=== PATIENT | male | born 1970 | race Caucasian/White ===

== ENCOUNTER 2023-01-25 10:39 | Inpatient (IN) | payer OTHER, SELFPAY ==
[2023-01-25] VITALS (79 sets, daily range): BP systolic 78–118; BP diastolic 48–80; PULSE 84–104; RESP 12–26; TEMP 37.2–37.3; O2SAT 91–100
--- NOTE | ~2023-01-25 | CT_ITS ---
EXAMINATION: CT abdomen pelvis w con DATE: 01/25/2023 12:29 INDICATION: Abdominal pain and distention. TECHNIQUE: Computed tomography (CT) of the abdomen and pelvis was performed with 100 mL Omnipaque 350 intravenous contrast. Automated exposure control and iterative reconstruction technique were employe d. The dose-length product was 609.04 mGy-cm. COMPARISON: None. FINDINGS: The visualized portions of the lung bases demonstrate mild atelectasis. There are small ple ural effusions. The heart size is normal. No pericardial effusion. There is diffuse hepatic steatosis . The gallbladder, spleen, pancreas, adrenal glands, and kidneys are normal. There is a paraumbilical portacaval shunt. There are no dilated loops of bowel. The appendix is normal. There is wall thicken ing of small and large bowel. There is an umbilical hernia containing fat. There is a small volume of ascites. There is a left inguinal hernia containing fat. There are no pathologically enlarged lymph nodes. There are old bilateral rib fractures. There is severe lower lumbar spondylosis. IMPRESSION: 1. Diffuse hepatic steatosis. 2. Portal venous hypertension. 3. Wall thickening of small and large bowel, likely interstitial edema. 4. Small volume of ascites. 5. Small pleural effusions. 6. Umbilical hernia containing fat. Left inguinal hernia containing fat. Reviewed, dictated and finalized at location A.
--- NOTE | ~2023-01-25 | CT_ITS ---
EXAMINATION: CT brain wo con DATE: 01/25/2023 12:29 INDICATION: Disorientation. TECHNIQUE: Computed tomography (CT) of the head was performed without intravenous contrast. Sagittal and coronal reconstructions were performed. The mA was adjusted according to patient size. Iterative reconstruction technique was employed. The dose-length product was 605.33 mGy-cm. COMPARISON: None FINDINGS: No acute intracranial hemorrhage, acute infarction or abnormal extra axial fluid collection. There is mild scattered white matter hypoattenuation consistent with chronic small vessel ischemic disease. S ymmetric prominence of the sulci and subarachnoid spaces overlying the convexities consistent with mi ld to moderate diffuse cerebral volume loss which is disproportionate for age. Ventricles are normal and symmetric. No mass/mass effect. Moderate mucosal thickening the bilateral maxillary sinuses. The orbits and mastoid air cells are normal. IMPRESSION: 1. No acute intracranial process. 2. Mild to moderate diffuse volume loss which is disproportionate for age with mild scattered nonspec ific white matter hypoattenuation most likely related to chronic small vessel ischemic disease. Reviewed, dictated and finalized at location L. IMPRESSION: 1. No acute intracranial process. 2. Mild to moderate diffuse volume loss which is disproportionate for age with mild scattered nonspecific white matter hypoattenuation most likely related to chronic small vessel ischemic disease.
[2023-01-25 11:49] LABS: Basophils Absolute Auto 0.1 K/mm3 (0.0-0.1); Basophils Percent Auto 0.5 % (0.2-1.2); Eosinophils Absolute Auto 0.2 K/mm3 (0-0.3); Eosinophils Percent Auto 1.2 % (0-4.4); Immature Granulocyte Absolute 0.12 K/mm3 (0.00-0.031); Immature Granulocyte Percent A 0.9 % (0-0.5); Lymphocytes Absolute Auto 1.23 K/mm3 (0.9-3.2); Lymphocytes Percent Auto 9.6 % (18.3-44.2); Mean Corpuscular HGB Conc 31.1 g/dl (32-36); Mean Corpuscular Hemoglobin 37.9 pg (26-34); Mean Corpuscular Volume 121.7 fl (80-100); Mean Platelet Volume 10.1 fl (7.4-10.4); Monocytes Absolute Auto 1.4 K/mm3 (0.1-0.6); Monocytes Percent Auto 10.5 % (2.6-8.5); Neutrophils Absolute Auto 9.9 K/mm3 (1.3-6.7); Neutrophils Percent Auto 77.3 % (45.5-73.1); Platelet Count Result 169 k/mm3 (150-375); Red Blood Count 1.61 M/mm3 (4.6-6.20); Red Cell Distribution Width 17.8 % (11.5-14.5); White Blood Count 12.9 K/mm3 (4.5-10.0)
[2023-01-25 11:58] LABS: Alanine Aminotransferase 44 U/L (6-50); Alkaline Phosphatase 170 U/L (38-126); Anion Gap 9 mmol/L (8-16); Aspartate Amino Transferase 98 U/L (17-59); Bilirubin,Total 10.9 mg/dL (0.2-1.3); Blood Urea Nitrogen 11 mg/dL (9-20); Calcium 7.9 mg/dL (8.4-10.2); Carbon Dioxide 29 mmol/L (22-30); Chloride 98 mmol/L (98-107); Estimated CRCL calculation 109 ml/min; Estimated Glomerular Filt Rate > 60; Glucose 105 mg/dL (65-110); Lipase 182 U/L (23-300); Potassium 2.7 mmol/L (3.4-5.0); Sodium 136 mmol/L (137-145)
[2023-01-25 12:06] LABS: Hemoglobin 6.1 g/dL (14.0-18.0)
[2023-01-25 12:07] LABS: Hematocrit 19.6 % (42.0-52.0)
[2023-01-25 12:08] LABS: Platelet Estimate Adequate (Adequate)
[2023-01-25 12:09] LABS: Anisocytosis 2+ (NORMAL); Hypochromasia 3+ (NORMAL); Macrocytosis 3+ (NORMAL); Tear Drop Cells 1+ (NORMAL)
[2023-01-25 12:10] LABS: Schistocytes None Seen (NORMAL); Target Cells 1+ (NORMAL)
[2023-01-25 12:20] LABS: Magnesium 1.7 mg/dL (1.6-2.3)
[2023-01-25 12:22] LABS: INR 1.4; Prothrombin Time 17.8 Seconds (11.1-14.7)
[2023-01-25 12:23] LABS: Partial Thromboplastin Time 40.8 SECONDS (22.3-36.8)
[2023-01-25] MEDS: POTASSIUM CHLORIDE 20 MEQ PACKET (FOR LIQUID) 40 MEQ PO (12:33)
[2023-01-25] MEDS: POTASSIUM CHLORIDE INJ 40 MEQ in SODIUM CHLORIDE 0.9% IV 500 ML 130 MEQ IVPB (12:37)
--- NOTE | 2023-01-25 13:37 | ED.WEAKNESS ---
HPI - Weakness General Chief complaint: Weakness <Christianne Rodriguez MD - Last Filed: 01/26/23 08:15> Stated complaint: jaundice, weak, abd pain <Christianne Rodriguez MD - Last Filed: 01/26/23 08:15> Time Seen by Provider: 01/25/23 11:40 <Christianne Rodriguez MD - Last Filed: 01/26/23 08:15> History of Present Illness HPI Narrative: History obtained from patient and mother at bedside, he had been drinking very heavily after the of his . Over the past month, he has noticed his skin has become more yellow and he has become very weak, per mother he actually fell a few times. Has tried to quit drinking with last drink about 2 weeks ago. <Christianne Rodriguez MD - Last Filed: 01/26/23 08:15> Related Data Home medications: Home Medications Medication Instructions Recorded Confirmed No Home Medications 01/26/23 01/26/23 <Christianne Rodriguez MD - Last Filed: 01/26/23 08:15> Allergies/Adverse reactions: Allergies Allergy/AdvReac Type Severity Reaction Status Date / Time No Known Allergies Allergy Verified 01/25/23 12:16 <Christianne Rodriguez MD - Last Filed: 01/26/23 08:15> Review of Systems Review of Systems: CONST: Overall weakness HEENT: No sore throat C/V: No chest pain RESP: No cough GI: Abdominal distention : No dysuria. M/S: No joint pain. SKIN: No rash. NEURO: Generalized weakness PSYCH: [No depression] <Christianne Rodriguez MD - Last Filed: 01/26/23 08:15> [facility] Past Medical History Medical History: Medical History (Updated 01/26/23 @ 14:30 by Jimi Cali MD) Acute anemia Portal hypertension <Christianne Rodriguez MD - Last Filed: 01/26/23 08:15> Surgical History Surgical History: Surgical History (Updated 01/26/23 @ 13:21 by Ann Rainey NP) History of tonsillectomy and adenoidectomy S/P ORIF (open reduction internal fixation) fracture Right ankle and right forearm <Christianne Rodriguez MD - Last Filed: 01/26/23 08:15> Family History Family History: Family History (Updated 01/26/23 @ 13:22 by Ann Rainey NP) Father Malignant neoplasm of prostate Mother Heart disease <Christianne Rodriguez MD - Last Filed: 01/26/23 08:15> Social History Social History: Social History (Updated 01/26/23 @ 13:23 by Ann Rainey NP) Social History: The patient continues to smoke a half a pack a cigarettes a day. The patient stated that he was drinking a pt of Tequila a day. His last drink was approximately 2 weeks ago. The patient has no children and is a were. 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 Code status full code Smoking packs per day: 0.5 Smoking cigarettes per day: 10.0 Smoking status: Current every day smoker Tobacco type: cigarettes Alcohol intake: former Substance use: current Substance use type: marijuana Lack of Transportation: No Lack of Food: Never True Current Housing: Decline to Answer Concerned About Future Housing: Decline to Answer Difficulty Paying Gas/Electric Bills: Decline to Answer Difficulty Paying for Meds: Decline to Answer Currently Unemployed: Decline to Answer Education: Decline to Answer Difficulty w/ Childcare or Family Care: Decline to Answer Spiritual care concerns: No <Christianne Rodriguez MD - Last Filed: 01/26/23 08:15> Exam Narrative: EXAMINATION OF ORGAN SYSTEMS/BODY AREAS: Constitutional: Vital signs per nursing GENERAL:[No acute distress, non-toxic appearing.] HEAD: Normal with no signs of head trauma. EYES: EOMI, conjunctiva normal ENT: Hearing grossly intact LUNGS: Nonlabored breathing. HEART: [Regular rate and rhythm] ABD: [Soft], slightly distended EXT: Normal range of motion SKIN: Jaundice NEURO: [Alert and oriented x 3. No gross focal sensory or strength deficits.] PSYCH: Normal affect <Christianne Rodriguez MD - Last Filed: 01/26/23 08:15> Course Course Emergency Course: Zych 1900: Patient was signed out to me pending
[2023-01-25 14:13] LABS: Hepatitis B Surface Antigen Negative (Negative)
[2023-01-25 14:19] LABS: HAV RESULT Negative (Negative); Hepatitis B Core IgM Result Negative (Negative)
[2023-01-25 16:06] LABS: Hepatitis C Virus Antibody Negative (Negative)
[2023-01-25] MEDS: TUBING, BLOOD PLUM PUMP TUBING 1 EACH XX (16:07)
[2023-01-25] MEDS: SODIUM CHLORIDE 0.9% IV 250 ML 30 ML IV CONT (16:07)
[2023-01-25] MEDS: THIAMINE HCL 200 MG/2 ML VIAL 100 MG IV PUSH (16:57)
[2023-01-25 17:25] LABS: Ethanol < 10 mg/dL (<10)
--- NOTE | 2023-01-25 20:05 | PC.NURSE ---
Patient able to use urinal at bedside.
--- NOTE | 2023-01-25 21:38 | PC.NURSE ---
Spoke with Ruby with the [facility] transfer center for an update. Patient still waiting for bed placement
[2023-01-26] VITALS (20 sets, daily range): BP systolic 93–113; BP diastolic 59–77; PULSE 82–97; RESP 13–24; TEMP 36.9–37.4; O2SAT 90–100; BMI 22.8
[2023-01-26 06:29] LABS: Basophils Absolute Auto 0.1 K/mm3 (0.0-0.1); Basophils Percent Auto 0.7 % (0.2-1.2); Eosinophils Absolute Auto 0.2 K/mm3 (0-0.3); Immature Granulocyte Percent A 0.9 % (0-0.5); Lymphocytes Absolute Auto 1.21 K/mm3 (0.9-3.2); Lymphocytes Percent Auto 10.4 % (18.3-44.2); Mean Corpuscular HGB Conc 31.5 g/dl (32-36); Mean Corpuscular Hemoglobin 36.5 pg (26-34); Mean Corpuscular Volume 115.9 fl (80-100); Monocytes Absolute Auto 1.2 K/mm3 (0.1-0.6); Monocytes Percent Auto 10.2 % (2.6-8.5); Neutrophils Absolute Auto 8.8 K/mm3 (1.3-6.7); Neutrophils Percent Auto 75.8 % (45.5-73.1); Platelet Count Result 143 k/mm3 (150-375); Red Cell Distribution Width 22.9 % (11.5-14.5); White Blood Count 11.6 K/mm3 (4.5-10.0)
[2023-01-26 06:41] LABS: Alanine Aminotransferase 36 U/L (6-50); Albumin Level 2.4 g/dL (3.5-5.1); Alkaline Phosphatase 124 U/L (38-126); Anion Gap 3 mmol/L (8-16); Aspartate Amino Transferase 86 U/L (17-59); Bilirubin,Total 11.9 mg/dL (0.2-1.3); Blood Urea Nitrogen 10 mg/dL (9-20); Calcium 7.2 mg/dL (8.4-10.2); Carbon Dioxide 28 mmol/L (22-30); Chloride 103 mmol/L (98-107); Estimated CRCL calculation 148 ml/min; Estimated Glomerular Filt Rate > 60; Glucose 74 mg/dL (65-110); Potassium 3.1 mmol/L (3.4-5.0); Sodium 134 mmol/L (137-145)
[2023-01-26 06:45] LABS: Hematocrit 19.7 % (42.0-52.0); Hemoglobin 6.2 g/dL (14.0-18.0); Platelet Estimate Decreased (Adequate)
[2023-01-26 06:46] LABS: Anisocytosis 2+ (NORMAL); Schistocytes None Seen (NORMAL)
[2023-01-26] MEDS: POTASSIUM CHLORIDE INJ 40 MEQ in SODIUM CHLORIDE 0.9% IV 500 ML 130 MEQ IVPB (07:27)
[2023-01-26] MEDS: POTASSIUM CHLORIDE 20 MEQ PACKET (FOR LIQUID) 40 MEQ PO (07:43)
[2023-01-26] MEDS: SODIUM CHLORIDE 0.9% IV 250 ML 30 ML IV CONT (08:25)
[2023-01-26 08:49] LABS: Bacteria Urine None Seen /hpf; Need Manual Microscopic Reviewed; Squamous Epithelial Cell Urine Occasional /hpf (Few); WBC Urine 0-5 /hpf
[2023-01-26 08:53] LABS: Appearance Urine Cloudy (Clear); Bilirubin Urine 3+ (Negative); Blood Urine Negative (Negative); Color Urine Dark Yellow (Yellow); Glucose Urine UA Negative (Negative); Ketones Urine Negative (Negative); Leukocyte Esterase Ur 1+ LEU/UL (Negative); Nitrate Urine Positive (Negative); Protein Urine 1+ mg/dL (Negative); Specific Grav Ur 1.049 (1.001-1.035); pH Urine 5.5 (5.0-9.0)
--- NOTE | 2023-01-26 08:54 | PC.NURSE ---
STEPHANIA FROM [facility]SF[facility] CALLED FOR UPDATE ON PT. STILL AWAITING TRANSFER BED.
[2023-01-26 08:55] LABS: Influenza A QL RT-PCR Negative (Negative); Influenza B QL RT-PCR Negative (Negative); RSV RNA, RT-PCR Negative (Negative); SARS-CoV-2 RNA PCR Negative (Negative)
[2023-01-26 09:01] LABS: Add Urine Microscopic? YES
--- NOTE | 2023-01-26 10:43 | ADMGEN ---
This patient, Sanjiv Akins, was admitted to Medical Room 349-01. Patient/family oriented to hospital policies and general routines including ID bracelet, bed and alarms, visiting hours, pain management, procedures, bathroom and other care routines, personal items, smoking policy, room service/diet, and visiting hours. Information on how to activate the Rapid Response Team has been discussed. Patient/Family are encouraged to report perceived risks to care and to ask questions if they do not understand what they are told or what they should do.
--- NOTE | 2023-01-26 12:29 | PM.IMHP ---
H&P: HPI History of Present Illness Date/Time: 01/26/23 12:29 Chief Complaint: Jaundice, weakness and abdominal pain. Narrative: This is a 52-year-old male patient who has been drinking a pt of Tequila a day since his September of 2020. Over the past month the patient noticed that he has become more yellow and he has become more weak. He is actually fell a few times recently. The patient stated that he quit drinking approximately 2 weeks ago. He stated for the 1st couple days it was pretty rough with withdrawals but he has not drink since then. The patient is determined to stop drinking. His H&H initially was 6.2 and 19.7. The patient received 2 units of packed red blood cells and his H&H is now 7.9 and 26.1. His potassium is 3.1 which was supplemented. His sodium is 134. His calcium is low at 7.2. Total bilirubin 11.9. AST is 86. Urine is cloudy positive nitrates 3+ bilirubin 1+ leukocyte esterase. He is negative for influenza A/B RSV and COVID. Abdominal pelvis CT was read as the following1. Diffuse hepatic steatosis. 2. Portal venous hypertension. 3. Wall thickening of small and large bowel, likely interstitial edema. 4. Small volume of ascites. 5. Small pleural effusions. 6. Umbilical hernia containing fat. Left inguinal hernia containing fat. The patient was given potassium, normal saline, thiamin, and Rocephin in the emergency room. GI was notified here in suggested that the patient be transferred elsewhere. The patient was on the list to be transferred to several different hospitals. [facility] just called and stated that they do have a bed for the patient and he is going to be transferred to [facility] for further treatment. This is a short-stay summary. The patient had been admitted to the hospital on an inpatient status however [facility] called with the bed and this is a short-stay note. Date of service is 01/26/2023. Review of Systems Review of Systems: All systems reviewed & are unremarkable except as noted in HPI and below Constitutional: Constitutional: Reports as per HPI and Reports no additional constitutional complaints Eyes: Eyes: Reports as per HPI and Reports no additional eye complaints ENT: Reports system reviewed and no additional complaints, except as documented and Reports Normal hearing present Cardiovascular: Cardiovascular: Reports no additional cardiovascular complaints Respiratory: Respiratory: Reports no additional respiratory complaints and Reports no additional respiratory complaints Gastrointestinal: Gastrointestinal: Reports as per HPI and Reports no additional gastrointestinal complaints Musculoskeletal: Musculoskeletal: Reports no additional musculoskeletal complaints Integumentary/Breasts: Skin/Breast: Reports system reviewed and no additional complaints, except as docu and Reports as per HPI Neurologic: Reports system reviewed and no additional complaints, except as documented, Reports as per HPI and Reports Normal hearing present Psychiatric: Psychiatric: Reports no additional psychiatric complaints and Reports as per HPI Endocrine: Endocrine: Reports no additional endocrine complaints Hematologic/Lymphatic: Hematologic/Lymphatic: Reports no additional hematologic/lymphatic complaints Allergic/Immunologic: Allergic/Immunologic: Reports no additional allergic/immunologic complaints [facility] Surgical History Surgical History (Updated 01/26/23 @ 13:21 by Ann Rainey NP) History of tonsillectomy and adenoidectomy S/P ORIF (open reduction internal fixation) fracture Right ankle and right forearm Family History Family History (Updated 01/26/23 @ 13:22 by Ann Rainey NP) Father Malignant neoplasm of prostate Mother Heart disease Social History Social History (Updated 01/26/23 @ 13:23 by Ann Rainey NP) Social History: The patient continues to smoke a half a pack a cigarettes a day. The patient stated that he was drinking a pt of Tequil
[2023-01-26 12:56] LABS: Hematocrit 26.1 % (42.0-52.0); Hemoglobin 7.9 g/dL (14.0-18.0)
--- NOTE | 2023-01-26 13:44 | PC.NURSE ---
01/26/23 0736, called [facility] transfer line.
--- NOTE | 2023-01-26 14:21 | WPDGICN ---
Assessment and Plan Assessment and plan (1) Acute alcoholic hepatitis: Code(s): K70.10 - Alcoholic hepatitis without ascites Status: Acute Assessment and Plan: severe alcoholic hepatitis, DF 39 medical support, thiamine, nutrition consult will need to get established with hepatology (if decompensation will need to get transferred) (2) Jaundice: Code(s): R17 - Unspecified jaundice Status: Acute Assessment and Plan: from alcoholic hepatitis hepatitis negative (3) Acute anemia: Code(s): D64.9 - Anemia, unspecified Status: Acute Assessment and Plan: no signs of bleeding but monitor s/p blood transfusion at some point will need egd (4) UTI (urinary tract infection): Code(s): N39.0 - Urinary tract infection, site not specified Status: Acute Assessment and Plan: on abx (5) Hypokalemia: Code(s): E87.6 - Hypokalemia Status: Acute Assessment and Plan: treated (6) Portal hypertension: Code(s): K76.6 - Portal hypertension Status: Acute GI Consult Note Consult date/time: 01/26/23 14:21 Reason for consult: alcoholic hepatitis HPI: Sanjiv Akins is a 52 year old male who is alcoholic but started drinking even more about 1 pint a da since September of 2020.?He stopped drinking about 2 weeks ago after noted he has become more yellow and had generalized weakness.? He stated for the 1st couple days it was pretty rough with withdrawals but he has not drink since then.?His H&H initially was 6.2 and 19.7 and received 2 units of packed red blood cells. His potassium is 3.1. His sodium is 134.?Total bilirubin 11.9.? AST is 86.? Urine is cloudy positive nitrates 3+ bilirubin 1+ leukocyte esterase, started on abx. Negative for influenza A/B RSV and COVID.? Abdominal pelvis CT was read as the following1. Diffuse hepatic steatosis, Portal venous hypertension, Wall thickening of small and large bowel, likely interstitial edema, Small volume of ascites, Small pleural effusions. Denies illicit drugs, he has not seen a doctor in a while and not taking medication regular basis, denies previous history of liver disease. He had colonoscopy as screening about 5 years ago, no egd. Denies overt gib, no melena. Hepatitis panel negative Review of Systems Constitutional: Constitutional: Reports lethargy and Reports weakness Eyes: Eyes: Denies blurry vision ENT: Reports Normal hearing present Cardiovascular: Cardiovascular: Denies chest pain Respiratory: Respiratory: Denies cough Gastrointestinal: Gastrointestinal: Reports bloating Genitourinary: Genitourinary: Denies dysuria Musculoskeletal: Musculoskeletal: Denies arthralgias Integumentary/Breasts: Skin/Breast: Denies rash Neurologic: Denies Abnormal speech present Psychiatric: Psychiatric: Denies confusion [facility] Past Medical History Medical History (Updated 01/26/23 @ 14:30 by Jimi Cali MD) Acute anemia Portal hypertension Surgical History Surgical History (Updated 01/26/23 @ 13:21 by Ann Rainey NP) History of tonsillectomy and adenoidectomy S/P ORIF (open reduction internal fixation) fracture Right ankle and right forearm Family History Family History (Updated 01/26/23 @ 13:22 by Ann Rainey NP) Father Malignant neoplasm of prostate Mother Heart disease Social History Social History (Updated 01/26/23 @ 13:23 by Ann Rainey NP) Social History: The patient continues to smoke a half a pack a cigarettes a day. The patient stated that he was drinking a pt of Tequila a day. His last drink was approximately 2 weeks ago. The patient has no children and is a were. 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 Code status full code Smoking packs per day: 0.5 Smoking cigarettes per day: 10.0 Smoking status: Current every day smoker Tobacco type: cigarettes Alcoh
[2023-01-26] MEDS: NICOTINE (*PBKC) 14 MG PATCH 1 PATCH TRANSDERM (15:55)
== END 2023-01-26 16:09 | disposition short-term general hospital (02) | DRG 280 ==
LOC: ANHED 01-26 08:15 → ANH3MED 01-26 14:05
PROVIDERS: Emergency Medicine; Admitting Provider Student in an Organized Health Care Education/Training Program; Emergency Provider Emergency Medicine; Visit Provider Nurse Practitioner
DX: K70.10 Alcoholic hepatitis without ascites (principal); K76.6 Portal hypertension; D64.9 Anemia, unspecified; N39.0 Urinary tract infection, site not specified; E87.6 Hypokalemia; Z20.822 Contact with and (suspected) exposure to COVID-19; F17.210 Nicotine dependence, cigarettes, uncomplicated; F10.20 Alcohol dependence, uncomplicated
CPT/HCPCS: 36415; 36430; 70450; 74177; 80053; 80074; 80307; 81001; 83690; 83735; 85014; 85018; 85025; 85610; 85730; 86850; 86900; 86901; 86923; 87040; 87637; 96361; 96365; 96366; 96374; 96375; 99285; A9270; J0696; J3411; J3480; J7040; J7050; P9016; Q9967